=== PATIENT | female | born 1995 | race Caucasian/White ===

== ENCOUNTER 2019-10-14 09:24 | Emergency (ER) | payer OTHER ==
[~2019-10-14] VITALS: Ht 162.6 cm; Wt 99.8 kg
[2019-10-14] MEDS ORDERED: NAPROSYN500 M1 PO (09:39)
[2019-10-14] MEDS ORDERED: IBUPROFEN 800800 MG PO (10:09)
[2019-10-14 10:41] VITALS: BP 119/67
== END 2019-10-14 10:43 | disposition home or self-care (01) ==
LOC: M.ERS 09:24
DX: J06.9 Acute upper respiratory infection, unspecified (principal); R11.2 Nausea with vomiting, unspecified

== ENCOUNTER 2019-10-22 18:12 | Emergency (ER) | payer OTHER ==
[~2019-10-22] VITALS: Ht 162.6 cm; Wt 99.8 kg
[~2019-10-22 18:12] MED LIST: IBUPROFEN 800800 MG PO; NAPROSYN500 M1 PO
[2019-10-22] MEDS ORDERED: CLARITIN10 M3 PO (18:45)
[2019-10-22] MEDS ORDERED: FLONASE 0.05%50 MCG NARES (18:45)
[2019-10-22 19:12] VITALS: BP 123/54
== END 2019-10-22 19:12 | disposition home or self-care (01) ==
LOC: M.ERS 18:12
DX: J02.9 Acute pharyngitis, unspecified (principal); R09.81 Nasal congestion